=== PATIENT | male | born 2000 | race African-American/Black ===

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

== ENCOUNTER 2021-05-04 15:40 | Emergency (ER) | payer BC | END 2021-05-04 19:25 | disposition left against medical advice (07) | LOC: ER 15:40 | DX: M79.641 Pain in right hand (principal); Z53.21 Procedure and treatment not carried out due to patient leaving prior to being seen by health care provider; W22.01XA Walked into wall, initial encounter; Y93.89 Activity, other specified; Y92.89 Other specified places as the place of occurrence of the external cause; Y99.8 Other external cause status ==

== ENCOUNTER 2021-05-16 17:40 | Emergency (ER) | payer BC ==
[~2021-05-16] VITALS: Ht 170.2 cm; Wt 66.0 kg
[2021-05-16] MEDS ORDERED: HYDROcodone/APAP 5/325MG 1 TAB TABLET PO ONE (20:15)
[2021-05-16] MEDS ORDERED: IBUPROFEN 200 MG TABLET. PO ONE (20:15)
[2021-05-16] MEDS ORDERED: DIPH,PERTUSS(ACELL),TET VAC/PF 0.5 ML SYRINGE. VAX IM ONE (20:15)
--- NOTE | 2021-05-16 20:19 | PHYS DOC ---
Past Medical History Past Medical History: Anxiety, Asthma, Other Additional Past Medical Histor: "anxiety attack" Past Surgical History: No Surgical History Smoking Status: Never Smoker Alcohol Use: None Drug Use: None General Adult EDM: Chief Complaint: HAND PROBLEM HPI: HPI: Patient is a 20 year old male presents emergency department chief complaint he he punched a door with his right hand a week ago. States he has had pain and swelling to his right hand ever since near his pinky side of his hand. Patient states his last tetanus immunization was greater than 5 years ago. Patient reports a 10 out of 10 pain. Patient denies any other physical complaints or p hysical concerns. Review of Systems: Review of Systems: 14 body systems of review of systems have been reviewed. See HPI for pertinent positives and negative responses, otherwise all other systems are negative, nonpertinent or noncontributory. Constitutional: Negative except as outlined in HPI above. Skin: Negative except as outlined in HPI above. Eyes: Negative except as outlined in HPI above. HENT: Negative except as outlined in HPI above. Respiratory: Negative except as outlined in HPI above. Cardiovascular: Negative except as outlined in HPI above. GI: Negative except as outlined in HPI above. : Negative except as outlined in HPI above. Musculoskeletal: Negative except as outlined in HPI above. Integument: Negative except as outlined in HPI above. Neurologic: Negative except as outlined in HPI above. Endocrine: Negative except as outlined in HPI above. Lymphatic: Negative except as outlined in HPI above. Psychiatric: Negative except as outlined in HPI above. Heart Score: C/O Chest Pain: No Risk Factors: Risk Factors: DM, Current or recent (<one month) smoker, HTN, HLP, family history of CAD, obesity. Risk Scores: Score 0 - 3: 2.5% MACE over next 6 weeks - Discharge Home Score 4 - 6: 20.3% MACE over next 6 weeks - Admit for Clinical Observation Score 7 - 10: 72.7% MACE over next 6 weeks - Early Invasive Strategies Allergies: Allergies: Allergies Coded Allergies Type Severity Reaction Last Updated Verified No Known Drug Allergies 05/14/15 No Physical Exam: PE: Constitutional: Well developed, well nourished, no acute distress, non-toxic appearance. 20-year-old male in no apparent distress. HENT: Normocephalic, atraumatic. Eyes: Conjunctiva normal, no discharge. Neck: Normal range of motion, no stridor. Cardiovascular: No cyanosis appreciated, distal cap refill less than 2 seconds. Lungs & Thorax: Patient is in no respiratory distress, no audible adventitious lung sounds appreciated. Abdomen: Nontender, no abnormalities noted. Skin: Warm, dry, no erythema, no rash. Back: No tenderness, no deformities. Extremities: No tenderness, no cyanosis, no clubbing, ROM intact, no edema. Except for right upper extremity hand. Swelling along the hypothenar eminence of the hand, no crepitus appreciated, limited passive range of motion of fifth digit related to pain. Distal cap refills less than 2 seconds, mild erythema of the hypothenar eminence of hand. Neurologic: Alert and oriented X 3, normal motor function, normal sensory function, no focal deficits noted. Psychologic: Affect normal, judgement normal, mood normal. Current Patient Data: Vital Signs: Vital Signs Date Time Temp Pulse Resp B/P (MAP) Pulse Ox O2 Delivery O2 Flow Rate FiO2 05/16/21 19:00 99.5 70 16 146/70 (114) 97 Room Air 99.5 EKG: EKG: [] Radiology/Procedures: Radiology/Procedures: PATIENT: PERCY TRENT ACCOUNT: [id number] : 2000 LOCATION: ER AGE: 20 SEX: M EXAM STATUS: REG ER ORD. PHYSICIAN: HENRIK MAS APRN REASON: Punched a door, pain to right 5th metacarpal PROCEDURE: HAND RIGHT 3V Right hand 3 views: Reason for examination: Punched the door with pain in right fifth metacarpal bone. No acute fracture or dislocation is seen. The bone density is normal. No abnormal periosteal reaction is seen. Joint spaces are maintained. IMPRESSION: No acute bony abnormality of the right hand. Electronically signed by: Kay Grider MD (05/16/2021 8:27 PM) DENIZ Course & Med Decision Making: Course & Med Decision Making Pertinent Labs and Imaging studies reviewed. (See chart for details) 20-year-old male, vital signs reviewed, presents emergency department planing of right hand pain after hitting wall. Physical exam concerning for boxer's fracture. Will bring patient's tetanus immunization up-to-date with Adacel/Tdap. Will give p.o. pain medications. Ice pack elevation. X-ray of right hand. Discussed ED work-up and planning with patient, patient amendable to ED planning. Patient's x-ray negative for acute fracture, upon reevaluation of the patient, patient does have abrasion well-healed over knuckle of pinky finger right side. Discussed with patient detailed events, patient states that he did hit wall 7 days ago however did not experience any swelling until last night and noticed today increased swelling with decreased ability to move pinky finger. Upon close examination there is no lymphangitis, no lymphadenopathy of the axilla on the right, 2+ radial brachial pulse, distal cap refill is less than 2 seconds, suspect bacterial infection injury from abrasion over fifth MIP joint, discussed with patient will start 2 g Ancef IV, Augmentin at home, strict return to ER precautions and concerns. Patient is amenable to ED discharge planning. Discussed with patient at length side effects of antibiotics, must take as directed until completed. Return to ED if worsening or not getting better, reevaluation in 3 days. Discussed with the patient all findings and diagnostic testing as well as the need to follow-up with their primary care provider for further evaluation and treatment or return to the ED if any new or worsening symptoms. Strict return precautions were also discussed at length, the patient voiced understanding and agreement with the discharge planning. The patient was nontoxic in appearance, in no apparent distress, and hemodynamically stable at the time of disposition. Considered outpatient antibiotic therapy with Keflex however related to the shape of the abrasion on pinky knuckle consistent with tooth bite, patient's questionable description of events, will cover with Augmentin twice daily x10 days with strict follow-up in 3 days for reevaluation. Luma Disclaimer: Luma Disclaimer: This electronic medical record was generated, in whole or in part, using a voice recognition dictation system. Departure Departure Impression: Primary Impression: Cellulitis of right hand Additional Impression: Need for DTaP vaccination Disposition: HOME / SELF CARE / HOMELESS Condition: GOOD Referrals: NO PCP (PCP) Patient Instructions: Cellulitis Additional Instructions: You were seen today for swelling of your right hand after punching a wall a week ago. It was revealed that your swelling did not come about until yesterday and 2 today. As we discussed at length I suspect this is a bacterial infection causing the swelling specifically a cellulitis of your right hand. You were treated today in the emergency department with a tetanus immunization called Lisandro Quick, please update your immunization records accordingly, you are also given 2 g of Ancef intravenously which is in a broad-spectrum antibiotic, I am prescribing you Augmentin tablets to take twice a day for the next 10 days. It is imperative that you return to the emergency department or to your primary care physician's office for reevaluation of this hand infection in 3 days. Please return sooner if worsening. Thank you for visiting our Emergency Department. It was a pleasure taking care of you today in the emergency department and we appreciate you trusting us with your care. If any additional problems come up don't hesitate to return to visit us. Please follow up with your primary care provider so they can plan additional care if needed and know about the problem that you had. If symptoms worsen come back to the Emergency Department. Any concerning symptoms that start such as chest pain, shortness of air, weakness or numbness on one side of the body, running high fevers or any other concerning symptoms return to the ER. EMERGENCY DEPARTMENT GENERAL DISCHARGE INSTRUCTIONS Thank you for coming to [facility] Emergency Department (ED) today and trusting us with you care. We trust that you had a positive experience in our Emergency Department. If you wish to speak to the department management, you may call the Director at [phone]. YOUR FOLLOW UP INSTRUCTIONS ARE FOLLOWS: 1. Do you have a private Doctor? If you do not have a private doctor, please ask for a resource list of physicians or clinics that may be able to assist you with follow up care. 2. The Emergency Physicain has interpreted your x-rays. The X-Ray specialist will also review them. If there is a change in the findings, you will be notified in 48 hours when at all possible. 3. A lab test or culture has been done, your results will be reviewed and you will be notified if you need a change in treatment. ADDITIONAL INSTRUCTIONS AND INFORMATION: 1. Your care today has been supervised by a physician who is specially trained in emergency care. Many problems require more than one evaluation for a complete diagnosis and treatment. We recommend that you schedule your follow up appointment as recommended to ensure complete treatment of you illness or injury. If you are unable to obtain follow up care and continue to have a problem, or if your condition worsens, we recommend that you return to the ED. 2. We are not able to safely determine your condition over the phone nor are we able to give sound medical advice over the phone. For these safety reasons, if you call for medical advice we will ask you to come to the ED for further evaluation. 3. If you have any questions regarding these discharge instructions please call the ED at [phone]. SAFETY INFORMATION: In the interest of safety, wellness, and injury prevention; we encourage you to wear your sealbelt, if you smoke; quite smoking, and we encourage family to use a protective helmet for bicycling and other sporting events that present an increased risk for head injury. IF YOUR SYMPTOMS WORSEN OR NEW SYMPTOMS DEVELOP, OR YOU HAVE CONCERNS ABOUT YOUR CONDITION; OR IF YOUR CONDITION WORSENS WHILE YOU ARE WAITING FOR YOUR FOLLOW UP APPOINTMENT; EITHER CONTACT YOUR PRIMARY CARE DOCTOR, THE PHYSICIAN WHOSE NAME AND NUMBER YOU WERE GIVEN, OR RETURN TO THE ED IMMEDIATELY. Scripts Ibuprofen (IBUPROFEN) 600 Mg Tablet 600 MG PO PRN Q6HRS PRN for INFLAMMATION, #20 TAB 0 Refills Prov: HENRIK MAS APRN 05/16/21 Amoxicillin/Potassium Clav (AUGMENTIN 875-125 TABLET) 1 Each Tablet 1 TAB PO BID for hand infection for 10 Days, #20 TAB 0 Refills Prov: HENRIK MAS APRN 05/16/21 HENRIK MAS APRN May 16, 2021 20:19
--- NOTE | 2021-05-16 20:30 | RAD ---
Right hand 3 views: Reason for examination: Punched the door with pain in right fifth metacarpal bone. No acute fracture or dislocation is seen. The bone density is normal. No abnormal periosteal reaction is seen. Joint spaces are maintained. IMPRESSION: No acute bony abnormality of the right hand. Electronically signed by: Kay Grider MD (05/16/2021 8:27 PM) DENIZ
[2021-05-16] MEDS ORDERED: IBUP-1007 PO (21:16)
[2021-05-16] MEDS ORDERED: AMOX1TAB61 PO (21:16)
[2021-05-16 21:21] VITALS: BP 135/64
== END 2021-05-16 22:04 | disposition home or self-care (01) ==
LOC: ER 17:40
DX: L03.113 Cellulitis of right upper limb (principal); J45.909 Unspecified asthma, uncomplicated
CPT/HCPCS: 73130; 90471; 90715; 96365; 99284; J0690